=== PATIENT | female | born 1985 | race Two or more races ===

== ENCOUNTER → 2023-08-09 09:50 | Outpatient (REF) | payer OTHER, SELFPAY | LOC: HWRAD 09:50 | PROVIDERS: ATTENDING PHYSICIAN Obstetrics & Gynecology; FAMILY PHYSICIAN Family Medicine | DX: D25.0 Submucous leiomyoma of uterus (principal) | CPT/HCPCS: 76830; 76856 ==

== ENCOUNTER → 2024-09-14 17:26 | Outpatient (REF) | payer OTHER, SELFPAY | LOC: RAD 17:26 | PROVIDERS: ATTENDING PHYSICIAN Family Medicine | DX: J32.9 Chronic sinusitis, unspecified (principal); R09.81 Nasal congestion | CPT/HCPCS: 70488; Q9967 ==

== ENCOUNTER → 2024-09-24 08:05 | Outpatient (REF) | payer OTHER, SELFPAY | LOC: MRI 08:05 | PROVIDERS: ATTENDING PHYSICIAN Family Medicine | DX: D49.6 Neoplasm of unspecified behavior of brain (principal) | CPT/HCPCS: 70553; A9575 ==